=== PATIENT | male | born 1975 | race Hispanic/Latino ===

== ENCOUNTER → 2024-03-19 | Day surgery (SDC) | payer BC ==
[~2024-03-19] MED LIST: ATORVASTATIN CA20 MG PO; CENTRUM ADULTS1 EACH PO; METFORMIN HCL500 MG PO; PROPOFOL IV EMULSION 10 MG/ML 50 ML VIAL IV ONE
[2024-03-19] MEDS: LACTATED RINGER'S 1,000 ML ONE (14:52)
[2024-03-19 17:33] VITALS: TEMP 98
[2024-03-19 18:00] VITALS: BP 124/72; PULSE 61; RESP 18; O2SAT 98
== END | disposition home or self-care (01) ==
LOC: OR 14:11
PROVIDERS: ATTEND Internal Medicine Gastroenterology
DX: Z12.11 Encounter for screening for malignant neoplasm of colon (principal); K62.1 Rectal polyp; K64.8 Other hemorrhoids; E11.9 Type 2 diabetes mellitus without complications; Z71.3 Dietary counseling and surveillance; E78.5 Hyperlipidemia, unspecified; Z71.89 Other specified counseling; Z79.84 Long term (current) use of oral hypoglycemic drugs; Z79.899 Other long term (current) drug therapy; Z68.36 Body mass index [BMI] 36.0-36.9, adult
CPT/HCPCS: 36415; 45380; 45385; 82948; J2704; J7121; 45384

== ENCOUNTER → 2024-08-23 | Day surgery (SDC) | payer BC ==
[~2024-08-23] MED LIST changes: +DEXMEDETOMIDINE HCL 200 MCG/2 ML VIAL ONE; +FENTANYL CITRATE/PF 100MCG/2 ML INJ ONE; +LIDOCAINE HCL 2% LOCAL INJ 5 ML SDV VIAL INJ ONE; +MIDAZOLAM HCL 2 MG/2 ML VIAL ONE
[2024-08-23] MEDS: LACTATED RINGER'S 1,000 ML ONE (09:50)
[2024-08-23 11:07] VITALS: TEMP 97.4
[2024-08-23 11:35] VITALS: BP 142/90; PULSE 53; RESP 16; O2SAT 99
== END | disposition home or self-care (01) ==
LOC: OR 08:19
PROVIDERS: ATTEND Internal Medicine Gastroenterology
DX: Z09 Encounter for follow-up examination after completed treatment for conditions other than malignant neoplasm (principal); Z87.19 Personal history of other diseases of the digestive system; K64.8 Other hemorrhoids; Z86.0100 Personal history of colon polyps, unspecified; E11.9 Type 2 diabetes mellitus without complications; E78.00 Pure hypercholesterolemia, unspecified; R00.1 Bradycardia, unspecified; Z01.810 Encounter for preprocedural cardiovascular examination
CPT/HCPCS: 45380; 93005; J2003; J2250; J2704; J3010; J7121; 45378